=== PATIENT | female | born 1990 | race American Indian/Alaskan Native ===

== ENCOUNTER 2022-06-26 15:01 | Emergency (ER) | payer SELFPAY ==
--- NOTE | 2022-06-26 15:32 | Event Note ---
ED Screening Note Date of service: 06/26/22 Time: 15:29 ED Screening Note: This initial assessment/diagnostic orders/clinical plan/treatment(s) is/are subject to change based on patients health status, clinical progression and re- assessment by fellow clinical providers in the ED. Further treatment and workup at subsequent clinical providers discretion. Patient/guardian urged not to elope from the ED as their condition may be serious if not clinically assessed and managed. Patient with chronic back pain presents with re-exacerbation of pain - felt shift in back while walking. No new trauma. Has MRI report in her phone. Moved here from [place] 4 mo ago - no doctor here yet. Initial orders include: Active Orders 24 hr Category Date Time Status HCG Qualitative, Urine Stat Lab 06/26/22 15:28 Ordered Urinalysis Complete Stat Lab 06/26/22 15:28 Ordered
[2022-06-26 17:23] LABS: Bilirubin,Urine NEG (Negative); Blood,Urine NEG (Negative); Color,Urine Yellow (Yellow)
[2022-06-26 18:01] LABS: Mucus,Urine FEW /HPF; Urobilinogen,Urine < 2 mg/dL (<2.0)
[2022-06-26 18:06] LABS: HCG Qualitative,Urine Negative (Negative)
[2022-06-26] MEDS ORDERED: ONDANSETRON 4 MG/2 ML INJ IM ONE (20:13)
[2022-06-26] MEDS ORDERED: MORPHINE 4 MG/1 ML INJ IM ONE (20:13)
--- NOTE | 2022-06-26 20:21 | Emergency Department Report ---
<CAMILA ALBRIGHT - Last Filed: 06/26/22 20:16> ED Back Pain/Injury HPI - General Chief Complaint: Back Pain/Injury Stated Complaint: BACK PAIN/ HIP PAIN Time Seen by Provider: 06/26/22 20:02 Source: patient, family Limitations: No Limitations - History of Present Illness Initial Comments: 32-year-old -[place] female with known history of back problems, recently had MRI which showed multiple level lumbar spinal stenosis complained that she felt something slip while walking this morning denies having any direct trauma denies having any weakness. MD Complaint: back pain, back injury -: Sudden, hour(s) Place: home Radiation: right leg Severity: moderate Quality: burning Consistency: intermittent Improves With: none Worsens With: none Associated Symptoms: denies other symptoms - Related Data Allergies Allergy/AdvReac Type Severity Reaction Status Date / Time No Known Allergies Allergy Unverified 06/26/22 15:27 ED Review of Systems Constitutional: denies: chills, fever Eyes: denies: eye pain, eye discharge, vision change ENT: denies: ear pain, throat pain Respiratory: denies: cough, shortness of breath, wheezing Cardiovascular: denies: chest pain, palpitations Endocrine: no symptoms reported Gastrointestinal: denies: abdominal pain, nausea, diarrhea Genitourinary: denies: urgency, dysuria, discharge Musculoskeletal: back pain. denies: joint swelling, arthralgia Skin: denies: rash, lesions Neurological: denies: headache, weakness, numbness, paresthesias Psychiatric: denies: anxiety, depression Hematological/Lymphatic: denies: easy bleeding, easy bruising ED Past Medical Hx - Past Medical History Previous Medical History?: Yes Hx Hypertension: Yes Additional medical history: Back pain/injury - Surgical History Past Surgical History?: Yes Additional Surgical History: with Epidural ED Physical Exam - General Limitations: No Limitations ED Disposition Clinical Impression: Back pain, Spinal stenosis of lumbar region Disposition: 01 HOME / SELF CARE / HOMELESS Condition: Stable Instructions: Spinal Stenosis, [id number], Chronic Back Pain Additional Instructions: Please follow-up with your regular doctor at your earliest convenience. <BRICE MELENDEZ - Last Filed: 06/26/22 22:35> ED Review of Systems ROS: Stated complaint: BACK PAIN/ HIP PAIN Other details as noted in HPI ED Course Vital Signs 06/26/22 06/26/22 15:27 21:01 Temperature 98.2 F 98.9 F Pulse Rate 105 H 99 H Respiratory 22 16 Rate Blood Pressure 160/127 [Left] Blood Pressure 152/102 170/124 [Right] O2 Sat by Pulse 100 Oximetry ED Medical Decision Making - Medical Decision Making Patient given morphine for pain. Pelvis x-ray unremarkable. Stable for discharge home with return precautions. Critical care attestation.: If time is entered above; I have spent that time in minutes in the direct care of this critically ill patient, excluding procedure time. ED Disposition Is pt being admited?: No Time of Disposition: 22:35
--- NOTE | 2022-06-26 21:01 | XRay Report ---
PELVIS 2 VIEWS INDICATION / CLINICAL INFORMATION: back pain COMPARISON: None available. FINDINGS: BONES and JOINT(S): No acute fracture or subluxation. No significant arthritis. SOFT TISSUES: No significant abnormality. ADDITIONAL FINDINGS: None. IMPRESSION: 1. No acute findings. Signer Name: John Montez MD Signed: 06/26/2022 8:57 PM Workstation Name: [id number]
[2022-06-26 23:37] VITALS: BP 150/103
== END 2022-06-26 23:40 | disposition home or self-care (01) ==
LOC: ED 15:01
DX: M48.061 Spinal stenosis, lumbar region without neurogenic claudication (principal); I10 Essential (primary) hypertension; Z98.890 Other specified postprocedural states; Z79.899 Other long term (current) drug therapy
CPT/HCPCS: 72170; 81001; 81025; 87086; 96372; 99284; J2270; J2405